=== PATIENT | male | born 1975 ===

== ENCOUNTER 2016-10-03 00:33 | Emergency (ER) | payer OTHER ==
[2016-10-03 00:44] VITALS: RESP 16; TEMP 99.3; O2SAT 98
[2016-10-03] MEDS ORDERED: LIDOCAINE BUFFERED 1% 50 ML SOL SC ONE (01:05)
[2016-10-03] MEDS ORDERED: LIDOCAINE BUFFERED 1% 50 ML SOL ONE (01:07)
[2016-10-03] MEDS ORDERED: BACITRACIN 500 U/GM OIN TOP ONE ×2 (01:29→01:30)
[2016-10-03 02:10] VITALS: BP 153/93; PULSE 94
== END 2016-10-03 01:52 | disposition home or self-care (01) ==
LOC: ED 00:33
DX: S61.411A Laceration without foreign body of right hand, initial encounter (principal); W26.0XXA Contact with knife, initial encounter
CPT/HCPCS: 99283